=== PATIENT | female | born 1970 | race Caucasian/White ===

== ENCOUNTER 2016-07-14 17:00 | Emergency (ER) | payer BC, MEDICARE ==
[2016-07-14] MEDS ORDERED: Aspirin 81 MG Tab.Chew PO ONE (17:13)
[2016-07-14 17:18] VITALS: BP 120/58
--- NOTE | 2016-07-14 17:20 | EDM.PDOC ---
ED HISTORY OF PRESENT ILLNESS - General Chief Complaint: Chest Pain Stated Complaint: CHEST PAIN Time Seen by Provider: 07/14/16 17:00 Source: Reports: Patient History Limitations: Reports: No limitations - History of Present Illness INITIAL COMMENTS - FREE TEXT/NARRATIVE: Tiffanie comes to [facility] ED with a 1 hour hx of sharp retrosternal chest pain with some radiation to the back that is associated with some perceived "heavy breathing", without ramesh dyspnea, sweats, dizziness or nausea. Sxs occurred while watching TV, without heartburn, gas, belching, palpitations, or radiation of pain into shoulders or UEs. 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 She has tried no meds. - Related Data Allergies/ADRs: Allergies Allergy/AdvReac Type Severity Reaction Status Date / Time No Known Allergies Allergy Verified 03/27/16 11:58 Home Meds: Home Meds NK [No Known Home Meds] 07/14/16 [History] Past Medical History - Past Health History Medical/Surgical History: Denies Medical/Surgical History [employer] History: Reports: - Infectious Disease History Infectious Disease History: Reports: Chicken pox, Measles - Past Surgical History Female Surgical History: Reports: section, Hysterectomy Social & Family History - Tobacco Use Smoking Status *Q: Current Every Day Smoker Years of Tobacco use: 27 Packs/Tins Daily: 1 Used Tobacco, but Quit: No Month Tobacco Last Used: May Second Hand Smoke Exposure: No - Caffeine Use Caffeine Use: Reports: Coffee, Soda - Alcohol Use Days Per Week of Alcohol Use: 0 - Recreational Drug Use Recreational Drug Use: No ED ROS GENERAL - Review of Systems Review Of Systems: See Below Constitutional: Reports: no symptoms HEENT: Reports: No symptoms Respiratory: Reports: Other (atypical retrosternal chest pains and a sensation of "heavy breathing" in chest) Cardiovascular: Reports: Chest pain Endocrine: Reports: no symptoms GI/Abdominal: Reports: No symptoms : Reports: no symptoms Musculoskeletal: Reports: no symptoms Skin: Reports: no symptoms Neurological: Reports: No Symptoms Psychiatric: Reports: No symptoms Hematologic/Lymphatic: Reports: no symptoms Immunologic: Reports: no symptoms ED EXAM, GENERAL - Physical Exam Exam: See Below Exam Limited By: No limitations General Appearance: alert, WD/WN, mild distress Throat/Mouth: Normal inspection, Normal oropharynx, No airway compromise Head: normocephalic Neck: normal inspection, supple, non-tender, full range of motion Respiratory/Chest: no respiratory distress, lungs clear, normal breath sounds, no accessory muscle use, chest non-tender Cardiovascular: normal peripheral pulses, regular rate, rhythm, no edema, no gallop, no JVD, no murmur GI/Abdominal: normal bowel sounds, soft, non tender, no organomegaly, no distention, no mass Back Exam: normal inspection Extremities: normal inspection Neurological: alert, oriented, CN II-XII intact, normal cognition, normal gait, no motor/sensory deficits Psychiatric: normal affect, normal mood Skin Exam: Warm, Dry Lymphatic: no adenopathy Course - Vital Signs Text/Narrative:: Following admission to the [facility] ED, a 12 lead ekg noted NSR without acute changes. ASA 325 mg administered po, nasal 02 and monitoring pending results. the portable chest x ray noted normal cardiac size and no active infiltrate; CBC , CMP normal for age, Troponin I <0.01 She is asx without intervention. Last Recorded V/S: Last Vital Signs Temp 36.7 C 07/14/16 17:17 Pulse 77 07/14/16 17:17 Resp 17 07/14/16 17:17 BP 120/58 L 07/14/16 17:17 Pulse Ox 99 07/14/16 17:17 - Orders/Labs/Meds Orders: Active Orders 24 hr Category Date Time Status EKG Documentation Completion [RC] ASDIRECTED Care 07/14/16 17:25 Active Chest 1V Frontal [CR] Stat Exams 07/14/16 17:21 Taken Sodium Chloride 0.9% [Saline Flush] Med 07/14/16 17:21 Active 10 ml FLUSH ASDIRECTED PRN Peripheral IV Insertion Adult [OM.PC] Routine Oth 07/14/16 17:21 Ordered EKG 12 Lead [EK] Routine Ther 07/14/16 17:00 Ordered Medication Orders Sodium Chloride (Saline Flush) 10 ml FLUSH ASDIRECTED PRN PRN Reason: Keep Vein Open Labs: Laboratory Tests 07/14/16 07/14/16 07/14/16 Range/Units 17:31 17:31 17:31 WBC 7.1 (4.5-12.0) X10-3/uL RBC 4.36 (3.23-5.20) x10(6)uL Hgb 13.0 (11.5-15.5) g/dL Hct 37.9 (30.0-51.3) % MCV 86.9 (80-96) fL MCH 29.9 (27.7-33.6) pg MCHC 34.4 (32.2-35.4) g/dL RDW 12.2 (11.5-15.5) % Plt Count 319 (125-369) X10(3)uL MPV 7.9 (7.4-10.4) fL Add Manual Diff Yes Neutrophils % (Manual) 56 (46-82) % Lymphocytes % (Manual) 30 (13-37) % Monocytes % (Manual) 7 (4-12) % Eosinophils % (Manual) 7 H (0-5) % Sodium 138 (135-145) mmol/L Potassium 3.7 (3.5-5.3) mmol/L Chloride 106 (100-110) mmol/L Carbon Dioxide 23 (23-29) mmol/L BUN 11 (5-20) mg/dL Creatinine 0.9 (0.6-1.3) mg/dL Est Cr Clr Drug Dosing 83.36 mL/min Estimated GFR (MDRD) > 60 (>60) BUN/Creatinine Ratio 12.2 (9-20) Glucose 114 (80-116) mg/dL Calcium 9.1 (8.6-10.2) mg/dL Total Bilirubin 0.5 (0.1-1.3) mg/dL AST 14 D (5-27) IU/L ALT 10 L D (14-26) IU/L Alkaline Phosphatase 66 (56-112) IU/L Troponin I < 0.01 L (0.02-0.06) NG/ML Total Protein 7.2 (6.0-8.0) g/dL Albumin 3.9 (3.5-5.2) g/dL Globulin 3.3 g/dL Albumin/Globulin Ratio 1.2 Meds: Medications Generic Name Dose Route Start Last Admin Trade Name Freq PRN Reason Stop Dose Admin Sodium Chloride 10 ml 07/14/16 17:21 Saline Flush FLUSH ASDIRECTED PRN Keep Vein Open Discontinued Medications Generic Name Dose Route Start Last Admin Trade Name Majorq PRN Reason Stop Dose Admin Aspirin 324 mg 07/14/16 17:13 07/14/16 17:00 Aspirin PO 07/14/16 17:14 324 mg ONETIME ONE Administration Departure - Departure Time of Disposition: 18:40 Disposition: Home, Self-Care 01 Condition: good Clinical Impression: Atypical chest pain Referrals: Erick Tatum MD [Primary Care Provider] - Forms: ED Department Discharge Additional Instructions: ACTIVITY TOLERATED. NO SMOKING. KEEP APPOINTMENT FOR STRESS TEST SCHEDULED - Problem List & Annotations (1) Atypical chest pain SNOMED Code(s): 270532284 Code(s): R07.89 - OTHER CHEST PAIN Status: Acute Current Visit: Yes Annotation/Comment:: Keep appt for GXT next week. No meds dispensed, but advised against smoking. - Problem List Review Problem List Initiated/Reviewed/Updated: Yes - My Orders Last 24 Hours: My Active Orders 07/14/16 17:00 EKG 12 Lead [EK] Routine 07/14/16 17:21 Chest 1V Frontal [CR] Stat Sodium Chloride 0.9% [Saline Flush] 10 ml FLUSH ASDIRECTED PRN Peripheral IV Insertion Adult [OM.PC] Routine 07/14/16 17:25 EKG Documentation Completion [RC] ASDIRECTED - Assessment/Plan Last 24 Hours: My Active Orders 07/14/16 17:00 EKG 12 Lead [EK] Routine 07/14/16 17:21 Chest 1V Frontal [CR] Stat Sodium Chloride 0.9% [Saline Flush] 10 ml FLUSH ASDIRECTED PRN Peripheral IV Insertion Adult [OM.PC] Routine 07/14/16 17:25 EKG Documentation Completion [RC] ASDIRECTED Plan: Follow up with PCP and cardiology.
[2016-07-14] MEDS ORDERED: Sodium Chloride 0.9% 10 ML Syringe FLUSH PRN (17:21)
--- NOTE | 2016-07-15 10:51 | CR ---
INDICATION: Atypical chest pain. CHEST: An AP upright portable view of the chest 07/14/2016 was compared with , and allowing for previous PA view versus AP view currently, no definite interval change or acute process is identified. The heart is normal in size and shape. Overlying EKG leads are noted. An active infiltrate or effusion was not identified. IMPRESSION: Stable chest. No acute process or definite active disease. MTDD
== END 2016-07-14 18:40 | disposition home or self-care (01) ==
LOC: FB.ED 17:00
DX: R07.89 Other chest pain (principal); F17.210 Nicotine dependence, cigarettes, uncomplicated; Z90.710 Acquired absence of both cervix and uterus
CPT/HCPCS: 36415; 71010; 80053; 84484; 85025; 93005; 99285; A9270; 99284

== ENCOUNTER 2017-03-01 16:41 | Emergency (ER) | payer SELFPAY ==
--- NOTE | 2017-03-01 17:16 | EDM.PDOC ---
ED HPI GENERAL MEDICAL PROBLEM - General Chief Complaint: ENT Problem Stated Complaint: FACE NUMBNESS Time Seen by Provider: 03/01/17 16:45 Source of Information: Reports: Patient History Limitations: Reports: No Limitations - History of Present Illness INITIAL COMMENTS - FREE TEXT/NARRATIVE: Tiffanie comes into [facility] ED with a 18 hour hx of R hemifacial redness that has progressed overnight. Today the redness and swelling is more pronounced, associated with some numbness and tingling, extending to the tongue, lips and chin. She believes some issue of swallowing, although there have been no choking episodes. There is no recent hx of visual disturbance, nasal congestion , dental pain, headache, or dizziness. There is no fever, chills, cough, sweats , or rash. She has taken no meds. - Related Data Allergies Allergy/AdvReac Type Severity Reaction Status Date / Time No Known Allergies Allergy Verified 03/01/17 17:12 Home Meds: Home Meds Amoxicillin/Potassium Clav [Augmentin 875-125 Tablet] 1 each PO BID #20 tablet 03/01/17 [Rx] Past Medical History - Past Health History Medical/Surgical History: Denies Medical/Surgical History [employer] History: Reports: - Infectious Disease History Infectious Disease History: Reports: Chicken Pox, Measles - Past Surgical History Female Surgical History: Reports: Section, Hysterectomy Social & Family History - Tobacco Use Smoking Status *Q: Current Every Day Smoker Years of Tobacco use: 27 Packs/Tins Daily: 1 Used Tobacco, but Quit: No Month Tobacco Last Used: May Second Hand Smoke Exposure: No - Caffeine Use Caffeine Use: Reports: Coffee, Soda - Alcohol Use Days Per Week of Alcohol Use: 0 - Recreational Drug Use Recreational Drug Use: No ED ROS ENT - Review of Systems Review Of Systems: See Below Constitutional: Reports: No Symptoms HEENT: Reports: Other (sensation of swallowing difficulty) Respiratory: Reports: No Symptoms Cardiovascular: Reports: No Symptoms Endocrine: Reports: No Symptoms GI/Abdominal: Reports: No Symptoms : Reports: No Symptoms Musculoskeletal: Reports: No Symptoms Skin: Reports: No Symptoms Neurological: Reports: Numbness, Tingling Psychiatric: Reports: Anxiety Hematologic/Lymphatic: Reports: No Symptoms Immunologic: Reports: No Symptoms ED EXAM, ENT - Physical Exam Exam: See Below Exam Limited By: No Limitations General Appearance: Alert, WD/WN, No Apparent Distress, Anxious Eye Exam: Bilateral Eye: EOMI, Normal Fundi, Normal Inspection, PERRL Ears: Normal External Exam, Normal Canal, Normal TMs Nose: Normal Inspection, Normal Mucousa, Clear Rhinorrhea Mouth/Throat: Normal Oropharynx, Dental Tenderness (multiple teeth including deeply caried #1,#16), Throat Swelling (sensation of fullness) Head: Atraumatic, Normocephalic, Other (V Nerve 1,2,3 divisions intact to lt touch and pinprick; limited erythema and swelling overlying R malar surface) Neck: Normal Inspection, Supple, Full Range of Motion, Lymphadenopathy (R), Lymphadenopathy (L) Respiratory/Chest: Lungs Clear, Normal Breath Sounds, No Accessory Muscle Use, Chest Non-Tender Cardiovascular: Regular Rate, Rhythm, No Murmur GI/Abdominal: Normal Bowel Sounds, Soft, Non-Tender, No Organomegaly, No Distention, No Mass Back: Normal Inspection, Full Range of Motion Extremities: Normal Inspection Neurological: Alert, Oriented, CN II-XII Intact, Normal Cognition, Normal Gait, No Motor/Sensory Deficits Psychiatric: Normal Affect, Anxious Skin: Warm, Dry Lymphatic: Adenopathy (anterior cervical adenitis L>R) Course - Vital Signs Text/Narrative:: The sinus CT confirms a R maxillary sinusitis with ethmoidal involvement. I administered Augmentin XR 875/125 in the ED before discharge. Last Recorded V/S: Last Vital Signs Temp 36.4 C 03/01/17 17:29 Pulse 69 03/01/17 17:29 Resp 16 03/01/17 17:29 BP 127/55 L 03/01/17 17:29 Pulse Ox 100 03/01/17 17:29 - Orders/Labs/Meds Orders: Active Orders 24 hr Category Date Time Status Max Facial Sinus wo Cont [CT] Stat Exams 03/01/17 17:17 Taken Labs: Laboratory Tests 03/01/17 Range/Units 17:15 WBC 7.6 (4.5-12.0) X10-3/uL RBC 4.41 (3.23-5.20) x10(6)uL Hgb 13.3 (11.5-15.5) g/dL Hct 39.2 (30.0-51.3) % MCV 88.8 (80-96) fL MCH 30.2 (27.7-33.6) pg MCHC 33.9 (32.2-35.4) g/dL RDW 12.2 (11.5-15.5) % Plt Count 359 (125-369) X10(3)uL MPV 7.6 (7.4-10.4) fL Neut % (Auto) 59.3 (46-82) % Lymph % (Auto) 32.0 (13-37) % [place] % (Auto) 5.4 (4-12) % Eos % (Auto) 3 (1.0-5.0) % Baso % (Auto) 1 (0-2) % Neut # (Auto) 4.5 (1.6-8.3) # Lymph # (Auto) 2.4 (0.6-5.0) # [place] # (Auto) 0.4 (0.0-1.3) # Eos # (Auto) 0.2 (0.0-0.8) # Baso # (Auto) 0.1 (0.0-0.2) # Meds: Medications Discontinued Medications Generic Name Dose Route Start Last Admin Trade Name Freq PRN Reason Stop Dose Admin Amoxicillin/Clavulanate Potassium 1 tab 03/01/17 18:33 Augmentin 875 Mg/125 Mg PO 03/01/17 18:34 ONETIME ONE Departure - Departure Time of Disposition: 18:35 Disposition: Home, Self-Care 01 Condition: Fair Clinical Impression: Right maxillary sinusitis - Discharge Information Prescriptions: Amoxicillin/Potassium Clav [Augmentin 875-125 Tablet] 1 each PO BID #20 tablet Referrals: Erick Tatum MD [Primary Care Provider] - Forms: ED Department Discharge - Problem List & Annotations (1) Right maxillary sinusitis SNOMED Code(s): 09337019 Code(s): J32.0 - CHRONIC MAXILLARY SINUSITIS Status: Acute Current Visit : Yes Annotation/Comment:: I dispensed Augmentin XR 875/125 bid for 10 days. - Problem List Review Problem List Initiated/Reviewed/Updated: Yes - My Orders Last 24 Hours: My Active Orders 03/01/17 17:17 Max Facial Sinus wo Cont [CT] Stat - Assessment/Plan Last 24 Hours: My Active Orders 03/01/17 17:17 Max Facial Sinus wo Cont [CT] Stat Plan: Follow up with PCP.
[2017-03-01] MEDS ORDERED: Amoxicillin/Clavulanate K 875-125 MG Tab PO ONE (18:33)
[2017-03-01 19:14] VITALS: BP 125/62
--- NOTE | 2017-03-02 10:47 | CT ---
INDICATION: Right hemifacial numbness and tingling. CT PARANASAL SINUSES: Coronal images of the paranasal sinuses were obtained with 1.25-mm images. Sagittal and axial reconstructions were obtained. Total Exam DLP = 575.30 mGy-cm. Air-fluid level with frothy fluid is noted in the right maxillary antrum. The right maxillary infundibulum is opacified. There is somewhat of an air-fluid level with frothy fluid in the left maxillary antrum, with the maxillary infundibulum on the left appearing patent. Thickening of the linings of some of the ethmoidal air cells, minimally the frontal air cells, and also the right-sided sphenoidal air cell also noted, compatible with the sinusitis affecting those sinuses also. No definite bone erosion was identified. IMPRESSION: Findings are compatible with acute sinusitis, appearing most severe at the maxillary antrum and especially on the right. Report was called to Dr. Faust at 1818 hours, 03/01/2017. [place]
== END 2017-03-01 19:00 | disposition home or self-care (01) ==
LOC: FB.ED 16:41
DX: J32.0 Chronic maxillary sinusitis (principal); F17.210 Nicotine dependence, cigarettes, uncomplicated
CPT/HCPCS: 36415; 70486; 85025; 99283; A9270

== ENCOUNTER 2019-01-19 23:10 | Emergency (ER) | payer BC, OTHER ==
[2019-01-19] MEDS ORDERED: Meclizine 25 MG Tab PO ONE (23:11)
[2019-01-19] MEDS ORDERED: Ondansetron 4 MG Tab.DIS PO ONE (23:11)
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
[2019-01-20] MEDS: Sodium Chloride 0.9% 1,000 ML IV ONE (00:47)
[2019-01-20] MEDS: Meclizine 25 MG Tab PO ONE (00:48)
[2019-01-20] MEDS: Promethazine 25 MG in Sodium Chloride 0.9% 50 ML IV ONE (00:49)
[2019-01-20] MEDS: Sodium Chloride 0.9% 10 ML Syringe FLUSH PRN (00:52)
[2019-01-20] MEDS: diazePAM 5 MG/ML MDV IV ONE (01:47)
[2019-01-20] MEDS: Ondansetron 4 MG/2 ML SDV IVPUSH ONE (01:49)
[2019-01-20 03:36] VITALS: BP 116/60; PULSE 62
== END 2019-01-20 02:31 | disposition home or self-care (01) ==
LOC: FB.ED 23:10
DX: R42 Dizziness and giddiness (principal); R51 Headache; R70.0 Elevated erythrocyte sedimentation rate
CPT/HCPCS: 36415; 70450; 80053; 81001; 83735; 85025; 85651; 86140; 93005; 96361; 96374; 96375; 99284-25; A9270-GY; J2405; J2550; J3360; J7030; J7050

== ENCOUNTER 2019-02-02 21:18 | Emergency (ER) | payer BC ==
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
[2019-02-02] MEDS ORDERED: Sodium Chloride 0.9% 10 ML Syringe FLUSH PRN (22:10)
[2019-02-02] MEDS ORDERED: Sodium Chloride 0.9% 1,000 ML IV ONE (22:10)
[2019-02-02] MEDS ORDERED: Ketorolac 30 MG/ML SDV IVPUSH ONE (22:11)
[2019-02-02] MEDS ORDERED: Meclizine 25 MG Tab PO ONE (22:11)
[2019-02-02] MEDS ORDERED: LORazepam 2 MG/ML SDV IVPUSH ONE (22:11)
[2019-02-03 20:18] VITALS: BP 110/64; PULSE 72
== END 2019-02-03 00:10 | disposition home or self-care (01) ==
LOC: FB.ED 21:18
DX: R10.9 Unspecified abdominal pain (principal); R42 Dizziness and giddiness; F17.200 Nicotine dependence, unspecified, uncomplicated
CPT/HCPCS: 36415; 74176; 80053; 81001; 85025; 86140; 96361; 96374; 96375; 99284; A9270; J1885; J2060; J7030

== ENCOUNTER 2019-03-02 10:34 | Emergency (ER) | payer BC ==
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
[2019-03-02] MEDS ORDERED: Sodium Chloride 0.9% 10 ML Syringe FLUSH PRN (11:23)
[2019-03-02] MEDS ORDERED: Aspirin 81 MG Tab.Chew PO ONE (11:24)
[2019-03-02] MEDS ORDERED: Ondansetron 4 MG/2 ML SDV IVPUSH ONE (11:49)
[2019-03-02 11:57] VITALS: BP 123/56; PULSE 79
[2019-03-02] MEDS ORDERED: Ondansetron 4 MG Tab.DIS PO ONE (12:02)
--- NOTE | 2019-03-02 12:25 | CR ---
INDICATION: Chest pain. CHEST, ONE VIEW: An AP upright portable view of the chest 03/02/19 was compared with 02/20/19 and 07/14/16 again revealing the heart to be normal in size and shape. Overlying EKG leads are noted. An active infiltrate or effusion was not identified. IMPRESSION: No acute process. MTDD
== END 2019-03-02 13:33 | disposition home or self-care (01) ==
LOC: FB.ED 10:34
DX: R07.89 Other chest pain (principal); F17.200 Nicotine dependence, unspecified, uncomplicated
CPT/HCPCS: 36415; 71045; 80053; 83735; 84484; 85025; 85379; 93005; 99285-25; A9270-GY

== ENCOUNTER 2021-02-18 00:15 | Emergency (ER) | payer BC, MEDICAID, MEDICARE ==
[2021-02-18] MEDS ORDERED: Ibuprofen 800 MG Tab PO STA (00:34)
[2021-02-18] MEDS ORDERED: Cyclobenzaprine 10 MG Tab PO STA (00:34)
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
[2021-02-18 01:38] VITALS: BP 150/65; PULSE 111
== END 2021-02-18 02:00 | disposition home or self-care (01) ==
LOC: FB.ED 00:15
DX: R07.89 Other chest pain (principal); K21.9 Gastro-esophageal reflux disease without esophagitis
CPT/HCPCS: 36415; 80053; 84484; 85025; 93005; 99284-25; A9270-GY

== ENCOUNTER 2024-07-01 12:27 | Emergency (ER) | payer MEDICAID ==
[2024-07-01 13:01] VITALS: BP 153/80; PULSE 89
[2024-07-01] MEDS: Meclizine 25 MG Tab PO ONE (14:25)
[2024-07-01] MEDS: Metoclopramide 10 MG Tab PO ONE (14:25)
== END 2024-07-01 14:37 | disposition home or self-care (01) ==
LOC: FB.ED 12:27
DX: J06.9 Acute upper respiratory infection, unspecified (principal); G44.209 Tension-type headache, unspecified, not intractable; F17.210 Nicotine dependence, cigarettes, uncomplicated; Z90.49 Acquired absence of other specified parts of digestive tract; Z90.710 Acquired absence of both cervix and uterus; J45.909 Unspecified asthma, uncomplicated; K21.9 Gastro-esophageal reflux disease without esophagitis; Z79.899 Other long term (current) drug therapy
CPT/HCPCS: 93005; 99284; A9270

== ENCOUNTER 2024-08-27 18:39 | Emergency (ER) | payer MEDICAID ==
[2024-08-27 18:53] VITALS: BP 143/70; PULSE 91
[2024-08-27 19:25] LABS: BASOPHILS ABSOLUTE AUTO 0.1 x10-3/uL (0.0-0.1); BASOPHILS PERCENT AUTO 1.1 % (0.2-1.5); EOSINOPHILS ABSOLUTE AUTO 0.5 x10-3/uL (0.0-0.8); HEMATOCRIT 38.2 % (34.2-48.2); HEMOGLOBIN 13.2 g/dL (11.4-15.5); LYMPHOCYTES PERCENT AUTO 28.2 % (18.4-52.1); MEAN CORPUSCULAR HEMOGLOBIN 29.3 pg (23.9-33.9); MEAN CORPUSCULAR HGB CONC 34.5 g/dL (31.9-34.8); MEAN PLATELET VOLUME 7.7 fL (7.1-12.4); MONOCYTES ABSOLUTE AUTO 0.9 x10-3/uL (0.3-1.0); MONOCYTES PERCENT AUTO 8.1 % (4.4-15.7); NEUTROPHILS ABSOLUTE AUTO 6.2 x10-3/uL (1.5-6.3); NEUTROPHILS PERCENT AUTO 57.6 % (30.8-76.2); PLATELET COUNT,PLT 370 x10(3)uL (151-488); RED BLOOD CELL COUNT 4.49 x10(6)uL (3.60-5.20); RED CELL DISTRIBUTION WIDTH 13.5 % (12.3-16.5); WHITE BLOOD CELL COUNT,WBC 10.8 x10-3/uL (3.0-10.3)
[2024-08-27 19:29] LABS: BLOOD UREA NITROGEN,BUN 11 mg/dL (7-18); BUN/CREATININE RATIO 9.2 (9-20); CALCIUM 9.5 mg/dL (8.6-10.2); CARBON DIOXIDE,CO2 25 mmol/L (21-32); CHLORIDE,CL 103 mmol/L (100-110); CREATININE 1.2 mg/dL (0.55-1.02); ESTIMATED GFR 54 mL/min (>60); GLUCOSE RANDOM 97 mg/dL (80-116); POTASSIUM,K 3.9 mmol/L (3.5-5.3); SODIUM,NA 137 mmol/L (135-145)
[2024-08-27 19:34] LABS: A/G RATIO 0.9; ALANINE AMINOTRANSFERASE,ALT 25 U/L (12-36); ALBUMIN 3.6 g/dL (3.5-5.2); ALKALINE PHOSPHATASE 104 IU/L (56-112); ASPARTATE AMNIOTRANSFERASE,AST 17 IU/L (5-25); BILIRUBIN TOTAL 0.2 mg/dL (0.1-1.3); PROTEIN TOTAL,TP 7.5 g/dL (6.0-8.0)
== END 2024-08-27 20:40 | disposition home or self-care (01) ==
LOC: FB.ED 18:39
DX: S74.01XA Injury of sciatic nerve at hip and thigh level, right leg, initial encounter (principal); J45.909 Unspecified asthma, uncomplicated; Z90.49 Acquired absence of other specified parts of digestive tract; F17.210 Nicotine dependence, cigarettes, uncomplicated; Z79.899 Other long term (current) drug therapy; X50.9XXA Other and unspecified overexertion or strenuous movements or postures, initial encounter
CPT/HCPCS: 36415; 80053; 85025; 85379; 99283